=== PATIENT | female | born 1950 | race Caucasian/White ===

== ENCOUNTER → 2017-01-04 | Outpatient (CLI) | payer MEDICARE ==
[~2017-01-04] MED LIST: B12,B-12,B 12500 MC1 PO; D-1000 185 MG-11 TAB PO; Lopressor25 MG PO; POLLY-VITES1 CTB PO; TOPROL XL25 MG PO
[2017-01-04 10:46] LABS: BASO % 0.5 % (0.0-1.0); EOS # 0.1 10*3/uL (0.0-0.4); EOS % 3.2 % (1.0-4.0); HEMATOCRIT 42.5 % (37.0-47.0); HEMOGLOBIN 14.4 g/dl (12.0-16.0); LYMPH # 1.5 10*3/uL (1.3-4.4); LYMPH % 33.6 % (27.0-41.0); MEAN CELL VOLUME 90.2 fl (81.0-99.0); MEAN CORPUSCULAR HGB 30.6 pg (27.0-31.0); MEAN CORPUSCULAR HGB CONC 33.9 g/dl (33.0-37.0); MEAN PLATELET VOLUME 8.4 fl (9.6-12.3); MONO # 0.5 10*3/uL (0.1-1.0); MONO % 10.3 % (3.0-9.0); NEUT # 2.3 10*3/uL (2.3-7.9); NEUT % 52.2 % (47.0-73.0); PLATELET COUNT AUTOMATED 179 10*3/uL (130-400); RED BLOOD COUNT 4.71 10*6/uL (4.10-5.10); RED CELL DISTRI WIDTH 13.1 % (0-14.5); WHITE BLOOD COUNT 4.4 10*3/uL (4.8-10.8)
[2017-01-04 11:19] LABS: ALBUMIN 3.5 gm/dl (3.1-4.5); ALKALINE PHOSPHATASE 71 U/L (45-117); BILIRUBIN, TOTAL 0.6 mg/dl (0.2-1.0); BUN 13 mg/dl (7-24); CARBON DIOXIDE 30 mmol/L (21-32); CHLORIDE 104 mmol/L (98-107); CHOLESTEROL 204 mg/dL (<200); EST GLOM FILT AFRICAN AMERICAN > 60 ml/min; GLUCOSE 94 mg/dL (65-99); HDL CHOLESTEROL 71 mg/dl (40-60); LDL CHOLESTEROL 112 mg/dL (9-159); SGOT/AST 23 IU/L (3-35); SGPT/ALT 22 U/L (12-78); SODIUM 139 mmol/L (136-145); TOTAL PROTEIN 7.4 gm/dL (6.4-8.2); TRIGLYCERIDES 104 mg/dl (<150); VLDL CHOLESTEROL 21 mg/dL (6-40)
== END | disposition home or self-care (01) ==
LOC: LAB 09:33 → MAMMO 10:00
PROVIDERS: Family Medicine
DX: Z12.31 Encounter for screening mammogram for malignant neoplasm of breast (principal); I60.9 Nontraumatic subarachnoid hemorrhage, unspecified; E66.9 Obesity, unspecified; Z78.9 Other specified health status

== ENCOUNTER 2017-05-18 13:41 | Emergency (ER) | payer MEDICARE ==
[~2017-05-18] VITALS: Ht 160 cm; Wt 78.5 kg
[2017-05-18 14:31] LABS: BASO % 0.8 % (0.0-1.0); EOS # 0.1 10*3/uL (0.0-0.4); EOS % 2.8 % (1.0-4.0); HEMATOCRIT 38.5 % (37.0-47.0); HEMOGLOBIN 12.9 g/dl (12.0-16.0); LYMPH # 1.6 10*3/uL (1.3-4.4); LYMPH % 31.1 % (27.0-41.0); MEAN CELL VOLUME 89.5 fl (81.0-99.0); MEAN CORPUSCULAR HGB CONC 33.5 g/dl (33.0-37.0); MEAN PLATELET VOLUME 8.6 fl (9.6-12.3); MONO # 0.5 10*3/uL (0.1-1.0); NEUT # 2.7 10*3/uL (2.3-7.9); NEUT % 54.9 % (47.0-73.0); PLATELET COUNT AUTOMATED 170 10*3/uL (130-400); RED CELL DISTRI WIDTH 13.4 % (0-14.5)
[2017-05-18 14:42] LABS: ACT PARTIAL THROMBO TIME 24.8 SECONDS (20.8-31.5); INTERNATIONAL NORM RATIO 0.9 (2.0-3.5)
[2017-05-18 14:48] LABS: ALBUMIN 3.5 gm/dl (3.1-4.5); ALKALINE PHOSPHATASE 71 U/L (45-117); BUN 14 mg/dl (7-24); CHLORIDE 105 mmol/L (98-107); CREATININE 0.61 mg/dL (0.55-1.02); POTASSIUM 4.3 mmol/L (3.5-5.1); SGOT/AST 21 IU/L (3-35); SGPT/ALT 19 U/L (12-78); SODIUM 140 mmol/L (136-145); TOTAL PROTEIN 7.2 gm/dL (6.4-8.2)
== END 2017-05-18 16:14 | disposition home or self-care (01) ==
LOC: ED 13:41
PROVIDERS: Nurse Practitioner
DX: H57.8 Other specified disorders of eye and adnexa (principal); Z79.899 Other long term (current) drug therapy; Z87.891 Personal history of nicotine dependence

== ENCOUNTER 2017-11-12 12:29 | Emergency (ER) | payer OTHER ==
[~2017-11-12] VITALS: Ht 165.1 cm; Wt 68.0 kg
[2017-11-12] MEDS ORDERED: SEPTDS PO (12:41)
== END 2017-11-12 12:54 | disposition home or self-care (01) ==
LOC: ED 12:29
DX: K21.9 Gastro-esophageal reflux disease without esophagitis (principal); L03.115 Cellulitis of right lower limb; I50.9 Heart failure, unspecified; Z86.73 Personal history of transient ischemic attack (TIA), and cerebral infarction without residual deficits; Z87.891 Personal history of nicotine dependence; Z79.899 Other long term (current) drug therapy

== ENCOUNTER → 2017-12-22 | Outpatient (CLI) | payer OTHER ==
[~2017-12-22] MED LIST changes: +SEPTDS PO
[2017-12-22 12:07] LABS: ALKALINE PHOSPHATASE 73 U/L (45-117); BUN 9 mg/dl (7-24); CHLORIDE 108 mmol/L (98-107); CHOLESTEROL 211 mg/dL (<200); CREATININE 0.61 mg/dL (0.55-1.02); HDL CHOLESTEROL 45 mg/dl (40-60); LDL CHOLESTEROL 148 mg/dL (9-159); POTASSIUM 3.9 mmol/L (3.5-5.1); SGOT/AST 17 IU/L (3-35); SGPT/ALT 14 U/L (12-78); SODIUM 143 mmol/L (136-145); TOTAL PROTEIN 6.9 gm/dL (6.4-8.2); TRIGLYCERIDES 91 mg/dl (<150); VLDL CHOLESTEROL 18 mg/dL (6-40)
[2017-12-22 12:13] LABS: HEMATOCRIT 37.4 % (37.0-47.0); HEMOGLOBIN 11.6 g/dl (12.0-16.0); MEAN CELL VOLUME 84.2 fl (81.0-99.0); MEAN CORPUSCULAR HGB 26.1 pg (27.0-31.0); MEAN PLATELET VOLUME 8.8 fl (9.6-12.3); RED BLOOD COUNT 4.44 10*6/uL (4.10-5.10); RED CELL DISTRI WIDTH 15.2 % (0-14.5); WHITE BLOOD COUNT 6.7 10*3/uL (4.8-10.8)
== END | disposition home or self-care (01) ==
LOC: LAB 11:17
PROVIDERS: Registered Nurse Flight
DX: Z00.01 Encounter for general adult medical examination with abnormal findings (principal); E78.00 Pure hypercholesterolemia, unspecified; E55.9 Vitamin D deficiency, unspecified

== ENCOUNTER → 2018-02-28 | Outpatient (CLI) | payer OTHER | END | disposition home or self-care (01) | LOC: MAMMO 07:38 | DX: Z12.31 Encounter for screening mammogram for malignant neoplasm of breast (principal); R92.1 Mammographic calcification found on diagnostic imaging of breast ==

== ENCOUNTER 2018-07-28 14:13 | Emergency (ER) | payer OTHER ==
[~2018-07-28] VITALS: Ht 162.5 cm; Wt 78.9 kg
[2018-07-28 15:53] LABS: BASO % 0.5 % (0.0-1.0); EOS # 0.1 10*3/uL (0.0-0.4); EOS % 1.6 % (1.0-4.0); HEMATOCRIT 36.1 % (37.0-47.0); LYMPH # 1.4 10*3/uL (1.3-4.4); MEAN CELL VOLUME 81.7 fl (81.0-99.0); MEAN CORPUSCULAR HGB 24.9 pg (27.0-31.0); MEAN CORPUSCULAR HGB CONC 30.5 g/dl (33.0-37.0); MEAN PLATELET VOLUME 8.6 fl (9.6-12.3); MONO # 0.7 10*3/uL (0.1-1.0); MONO % 9.3 % (3.0-9.0); NEUT # 5.7 10*3/uL (2.3-7.9); NEUT % 71.3 % (47.0-73.0); PLATELET COUNT AUTOMATED 276 10*3/uL (130-400); RED BLOOD COUNT 4.42 10*6/uL (4.10-5.10); RED CELL DISTRI WIDTH 15.9 % (0-14.5)
[2018-07-28 16:02] LABS: ACT PARTIAL THROMBO TIME 25.2 SECONDS (20.8-31.5); INTERNATIONAL NORM RATIO 0.9 (2.0-3.5)
[2018-07-28 16:19] LABS: ALBUMIN 2.8 gm/dl (3.1-4.5); ALKALINE PHOSPHATASE 83 U/L (45-117); BUN 11 mg/dl (7-24); CHLORIDE 104 mmol/L (98-107); CREATININE 0.65 mg/dL (0.55-1.02); SGOT/AST 14 IU/L (3-35); SGPT/ALT 13 U/L (12-78); SODIUM 138 mmol/L (136-145); TOTAL PROTEIN 7.2 gm/dL (6.4-8.2)
[2018-07-28] MEDS ORDERED: INDOMETHACIN ER75 M1 PO (17:38)
== END 2018-07-28 17:42 | disposition home or self-care (01) ==
LOC: ED 14:13
PROVIDERS: Physician Assistant
DX: M10.9 Gout, unspecified (principal); M25.462 Effusion, left knee; Z87.891 Personal history of nicotine dependence; Z79.899 Other long term (current) drug therapy

== ENCOUNTER 2020-01-05 19:19 | Inpatient (IN) | payer OTHER ==
[~2020-01-05] VITALS: Ht 157.4 cm; Wt 80.5 kg
[~2020-01-05 19:19] MED LIST changes: +INDOMETHACIN ER75 M1 PO
[2020-01-05 19:50] VITALS: BP 116/63
[2020-01-05 21:41] LABS: BASO % 0.4 % (0.0-1.0); EOS % 0.3 % (1.0-4.0); HEMATOCRIT 28.8 % (37.0-47.0); LYMPH # 1.9 10*3/uL (1.3-4.4); LYMPH % 16.4 % (27.0-41.0); MEAN CELL VOLUME 70.9 fl (81.0-99.0); MEAN CORPUSCULAR HGB 21.4 pg (27.0-31.0); MEAN CORPUSCULAR HGB CONC 30.2 g/dl (33.0-37.0); MEAN PLATELET VOLUME 8.1 fl (9.6-12.3); MONO # 0.7 10*3/uL (0.1-1.0); MONO % 6.5 % (3.0-9.0); NEUT # 8.7 10*3/uL (2.3-7.9); PLATELET COUNT AUTOMATED 259 10*3/uL (130-400); RED BLOOD COUNT 4.06 10*6/uL (4.10-5.10); RED CELL DISTRI WIDTH 19.9 % (0-14.5); WHITE BLOOD COUNT 11.4 10*3/uL (4.8-10.8)
[2020-01-05 21:52] LABS: ACT PARTIAL THROMBO TIME 29.3 SECONDS (20.0-32.1); INTERNATIONAL NORM RATIO 1.2 (2.0-3.5)
[2020-01-05 21:57] LABS: ALBUMIN 1.5 gm/dl (3.1-4.5); ALKALINE PHOSPHATASE 153 U/L (45-117); BUN 14 mg/dl (7-24); CHLORIDE 103 mmol/L (98-107); LIPASE 62 U/L (73-393); POTASSIUM 3.1 mmol/L (3.5-5.1); SGOT/AST 28 IU/L (3-35); SGPT/ALT 12 U/L (12-78); SODIUM 135 mmol/L (136-145); TOTAL PROTEIN 5.9 gm/dL (6.4-8.2)
--- NOTE | 2020-01-05 22:12 | NUR ---
CALL LIGHT IN REACH. EDUCATED PT ON POTASSIUM INFUSION. . INSTRUCTED PT TO USE CALL LIGHT IF SHE HAS ANY DISCOMFORT AT THE IV SITE.
--- NOTE | 2020-01-05 22:38 | NUR ---
PT DENIES DISCOMFORT AT IV SITE. HAS DRANKL 1 1/2 BOTTLES OF CONTRAST AT THIS TIME.
--- NOTE | 2020-01-05 23:00 | NUR ---
PT FINISHED DRINKING CONTRAST. CT NOTIFIED. CT WILL COME GET PT AT 2325. PT UPDATED. RESTING QUIETLY. BELCHING AT TIMES. NO FURTHER COMPLAINTS.
--- NOTE | 2020-01-05 23:17 | NUR ---
Yasmin of care from Stephanie swain.
--- NOTE | 2020-01-05 23:24 | NUR ---
In to see pt at this time.Pt is alert and orientated x 3.Pt denines open wounds at this time.Pt has distended abdomen and bsx4.Pt also has clear lung sounds a this time.Pt has 20 gauge in rac at this time infusing fluids and potassium.Pt drinking contrast and states she does not need anything at this time.
[2020-01-05 23:26] VITALS: BP 122/49
--- NOTE | 2020-01-05 23:56 | NUR ---
Pt up to the bathroom with assit of one.
[2020-01-06] VITALS (8 sets, daily range): BP systolic 97–126; BP diastolic 46–60
--- NOTE | 2020-01-06 | NUR ---
Pt had large semi formed and liquid stool and also voided at this time.
--- NOTE | 2020-01-06 00:50 | NUR ---
Pt currently sleeping at this time.
[2020-01-06] MEDS ORDERED: SIMVASTATIN20 MG PO (02:02)
--- NOTE | 2020-01-06 02:45 | NUR ---
Pt taken to floor with all belongings including levaquin and flagyl.
--- NOTE | 2020-01-06 02:50 | NUR ---
A 69, admitted to , under the services of HUNTER Knight DO with a diagnosis of CONSTIPATION. Chief complaint is CONSTIPATION. Patient arrived via bed from ER. Monitor applied. Initial assessment completed. Vital signs taken and recorded. HUNTER KNIGHT DO notified of admission to the unit. Orders received. See assessment for past medical history, medications and allergies. Patient and/or family oriented to unit. [facility] visitation policy reviewed. Clothing/patient valuable form completed. LEONARDO PEREZ
--- NOTE | 2020-01-06 03:36 | NUR ---
DR. DONG NOTIFIED OF UP TO DATE HOME MEDICATIONS
--- NOTE | 2020-01-06 04:00 | NUR ---
DR. LETIITA ORONA PO MORNING MEDICATIONS
--- NOTE | 2020-01-06 05:30 | NUR ---
PT SLEEPING AT THIS TIME.
--- NOTE | 2020-01-06 06:15 | NUR ---
DR. OLMEDO NOTIFIED OF CONSULT
[2020-01-06 06:29] LABS: BASO % 0.4 % (0.0-1.0); EOS # 0.1 10*3/uL (0.0-0.4); EOS % 0.8 % (1.0-4.0); HEMATOCRIT 28.1 % (37.0-47.0); LYMPH # 1.8 10*3/uL (1.3-4.4); LYMPH % 15.7 % (27.0-41.0); MEAN CELL VOLUME 71.7 fl (81.0-99.0); MEAN CORPUSCULAR HGB 21.7 pg (27.0-31.0); MEAN CORPUSCULAR HGB CONC 30.2 g/dl (33.0-37.0); MEAN PLATELET VOLUME 8.3 fl (9.6-12.3); MONO # 0.8 10*3/uL (0.1-1.0); MONO % 7.2 % (3.0-9.0); NEUT # 8.4 10*3/uL (2.3-7.9); NEUT % 75.5 % (47.0-73.0); PLATELET COUNT AUTOMATED 256 10*3/uL (130-400); RED BLOOD COUNT 3.92 10*6/uL (4.10-5.10); WHITE BLOOD COUNT 11.1 10*3/uL (4.8-10.8)
[2020-01-06 06:52] LABS: ALBUMIN 1.2 gm/dl (3.1-4.5); ALKALINE PHOSPHATASE 131 U/L (45-117); BUN 11 mg/dl (7-24); CHLORIDE 105 mmol/L (98-107); CREATININE 0.44 mg/dL (0.55-1.02); POTASSIUM 3.3 mmol/L (3.5-5.1); SGOT/AST 21 IU/L (3-35); SGPT/ALT 6 U/L (12-78); SODIUM 135 mmol/L (136-145)
--- NOTE | 2020-01-06 10:25 | NUR ---
PRN DULCOLAX AND MILK OF MAGNESIA GIVEN FOR PATIENTS CONSTIPATION PER REQUEST FROM DR. ALANIS. WILL CONTINUE TO MONITOR.
--- NOTE | 2020-01-06 19:10 | NUR ---
REPORT RECEIVED. PT WATCHING TV. CALL LIGHT IN REACH
--- NOTE | 2020-01-06 22:00 | NUR ---
PT RESTING IN BED WITH EYES CLOSED. AROUSES EASILY UPON ENTERING ROOM. NO COMPLAINTS, CALL LIGHT IN REACH
[2020-01-07] VITALS: BP 119/68
--- NOTE | 2020-01-07 00:04 | NUR ---
PT ASLEEP AT THIS TIME.
--- NOTE | 2020-01-07 02:00 | NUR ---
PT SLEEPING AT THIS TIME
--- NOTE | 2020-01-07 04:00 | NUR ---
PT LYING IN BED WITH EYES CLOSED. NO S/S OF DISTRESS. CALL LIGHT IN REACH
[2020-01-07 06:05] LABS: BASO % 0.3 % (0.0-1.0); EOS # 0.1 10*3/uL (0.0-0.4); EOS % 1.1 % (1.0-4.0); HEMATOCRIT 26.1 % (37.0-47.0); LYMPH # 1.5 10*3/uL (1.3-4.4); LYMPH % 15.6 % (27.0-41.0); MEAN CELL VOLUME 71.7 fl (81.0-99.0); MEAN CORPUSCULAR HGB 21.4 pg (27.0-31.0); MEAN CORPUSCULAR HGB CONC 29.9 g/dl (33.0-37.0); MEAN PLATELET VOLUME 8.3 fl (9.6-12.3); MONO # 0.7 10*3/uL (0.1-1.0); MONO % 7.5 % (3.0-9.0); NEUT % 75.1 % (47.0-73.0); PLATELET COUNT AUTOMATED 249 10*3/uL (130-400); RED BLOOD COUNT 3.64 10*6/uL (4.10-5.10); RED CELL DISTRI WIDTH 19.8 % (0-14.5); WHITE BLOOD COUNT 9.3 10*3/uL (4.8-10.8)
[2020-01-07 06:26] LABS: ALBUMIN 1.1 gm/dl (3.1-4.5); ALKALINE PHOSPHATASE 115 U/L (45-117); BUN 8 mg/dl (7-24); CHLORIDE 108 mmol/L (98-107); CREATININE 0.39 mg/dL (0.55-1.02); SGOT/AST 17 IU/L (3-35); SGPT/ALT 8 U/L (12-78); SODIUM 137 mmol/L (136-145); TOTAL PROTEIN 4.6 gm/dL (6.4-8.2)
--- NOTE | 2020-01-07 06:28 | NUR ---
PT SLEEPING AT THIS TIME. CALL LIGHT IN REACH
[2020-01-07 06:42] LABS: POTASSIUM 4.5 mmol/L (3.5-5.1)
[2020-01-07 08:00] VITALS: BP 121/66
[2020-01-07 12:00] VITALS: BP 121/68
[2020-01-07 16:00] VITALS: BP 133/63
[2020-01-07 20:00] VITALS: BP 125/68
--- NOTE | 2020-01-07 20:00 | NUR ---
PATIENT RESTING IN BED C/O NAUSEA. GOLYTLE FINISHED. STATES IT UPSET HER STOMACH BUT SHE DID START MOVING HER BOWELS. BED IN LOWEST POSITION, CALL LIGHT IN REACH
--- NOTE | 2020-01-07 20:49 | NUR ---
MEDICATED WITH PRN ZOFRAN FOR C/O NAUSEA. WILL MONITOR
--- NOTE | 2020-01-07 21:49 | NUR ---
MEDICATION EFFECTIVE PER PATIENT
[2020-01-08] VITALS (8 sets, daily range): BP systolic 93–127; BP diastolic 39–72
[2020-01-08 05:52] LABS: BUN 7 mg/dl (7-24); CHLORIDE 108 mmol/L (98-107); CREATININE 0.45 mg/dL (0.55-1.02); POTASSIUM 3.6 mmol/L (3.5-5.1); SODIUM 137 mmol/L (136-145)
[2020-01-08 06:12] LABS: BASO % 0.2 % (0.0-1.0); EOS % 0.2 % (1.0-4.0); HEMATOCRIT 28.3 % (37.0-47.0); LYMPH # 1.5 10*3/uL (1.3-4.4); LYMPH % 14.6 % (27.0-41.0); MEAN CELL VOLUME 73.5 fl (81.0-99.0); MEAN CORPUSCULAR HGB 21.8 pg (27.0-31.0); MEAN CORPUSCULAR HGB CONC 29.7 g/dl (33.0-37.0); MEAN PLATELET VOLUME 8.7 fl (9.6-12.3); MONO # 0.5 10*3/uL (0.1-1.0); MONO % 4.7 % (3.0-9.0); NEUT % 79.9 % (47.0-73.0); PLATELET COUNT AUTOMATED 261 10*3/uL (130-400); RED BLOOD COUNT 3.85 10*6/uL (4.10-5.10); RED CELL DISTRI WIDTH 20.4 % (0-14.5)
--- NOTE | 2020-01-08 08:00 | NUR ---
IN TO ROOM. PATIENT AWAKE, ALERT AND ORIENTED. NO STATED COMPLAINTS AT THIS TIME, DENIES ANY PAIN. RESPIRATIONS ARE EASY AND REGULAR ON ROOM AIR. PT IS ABLE TO REPOSITION SELF AND IS ENCOURAGE TO DO SO. BED IN LOWEST LOCKED POSITION, CALL LIGHT WITHIN REACH. WILL CONTINUE TO MONITOR.
--- NOTE | 2020-01-08 08:40 | NUR ---
PATIENT OFF OF FLOOR TO GO TO SURGERY.
--- NOTE | 2020-01-08 09:00 | NUR ---
case management attempted to visit with patient, patient was out of room at this time for testing, case management will see later today
--- NOTE | 2020-01-08 19:58 | NUR ---
ASSUMED CARE OF PATIENT. PATIENT IS AAOX3 RESTING IN BED WITH EASY AND REGULAR RESPERS ON ROOM AIR. ASSESSMENT IS COMPLETE WITH NO C/O OR S/S OF DISTRESS NOTED AT THIS TIME. BED IS LOW, LOCKED, AND CALL LIGHT IS WIHTIN REACH. WILL CONTINUE TO MONITOR, SEE INTERVENTIONS.
--- NOTE | 2020-01-08 19:58 | NUR ---
ASSUMED CARE OF PATIENT. PATIENT IS AAOX3 RESTING IN BED WITH EASY AND REGULAR RESPERS ON ROOM AIR. ASSESSMENT IS COMPLETE WITH NO C/O OR S/S OF DISTRESS NOTED AT THIS TIME. BED IS LOW, LOCKED, AND CALL LIGHT IS WITHIN REACH. WILL CONTINIUE TO MONITOR, SEE SHIFT ASSESSMENT.
[2020-01-09] VITALS: BP 126/68
[2020-01-09 05:27] LABS: BUN 7 mg/dl (7-24); CHLORIDE 112 mmol/L (98-107); CREATININE 0.46 mg/dL (0.55-1.02); POTASSIUM 2.9 mmol/L (3.5-5.1); SODIUM 140 mmol/L (136-145)
--- NOTE | 2020-01-09 05:30 | NUR ---
DR. FOX AWARE OF CALCIUM OF 6.9.
[2020-01-09 05:58] LABS: BASO % 0.3 % (0.0-1.0); EOS # 0.1 10*3/uL (0.0-0.4); HEMATOCRIT 28.6 % (37.0-47.0); LYMPH # 1.2 10*3/uL (1.3-4.4); LYMPH % 12.2 % (27.0-41.0); MEAN CELL VOLUME 71.7 fl (81.0-99.0); MEAN CORPUSCULAR HGB 22.1 pg (27.0-31.0); MEAN CORPUSCULAR HGB CONC 30.8 g/dl (33.0-37.0); MEAN PLATELET VOLUME 8.4 fl (9.6-12.3); MONO # 0.7 10*3/uL (0.1-1.0); MONO % 6.6 % (3.0-9.0); NEUT % 79.5 % (47.0-73.0); PLATELET COUNT AUTOMATED 284 10*3/uL (130-400); RED BLOOD COUNT 3.99 10*6/uL (4.10-5.10); RED CELL DISTRI WIDTH 20.6 % (0-14.5); WHITE BLOOD COUNT 10.1 10*3/uL (4.8-10.8)
--- NOTE | 2020-01-09 07:00 | NUR ---
CHART CHECK COMPLETE.
--- NOTE | 2020-01-09 07:41 | NUR ---
PATIENT DAUGHTER, CLAYTON COTTON, CALLED IN REQUESTING DOCTOR OR SURGEON GET IN CONTACT WITH HER REGARDING SURGERY. CALL PLACED TO DR. OLMEDO AND HE SAID HE WOULD CONTACT THE FAMILY TOMORROW WITH PERMISSION FROM PATIENT. RELEASE OF RECORDS ON PATIENT CHART.
[2020-01-09 08:00] VITALS: BP 117/69
[2020-01-09 12:00] VITALS: BP 108/58
--- NOTE | 2020-01-09 12:33 | NUR ---
case management visits with patient, discussed with her a discharge plan and educated her on the services provided by [facility], patient was tearful and stated she did not want to discuss any of this at this time, reassurance given to patient and will see at a later time
[2020-01-09 16:00] VITALS: BP 121/60
[2020-01-09 20:00] VITALS: BP 113/59
--- NOTE | 2020-01-09 21:41 | NUR ---
ASSUMED CARE OF PATIENT. PATIENT IS AAOX3 RESTING IN BED WITH EASY AND REGULAR RESPERS ON ROOM AIR. ASSESSMENT IS COMPLETE WITH NO S/S OF DISTRESS NOTED AT THIS TIME. BED IS LOW, LOCKED, AND CALL LIGHT IS WITHIN REACH. WILL CONTNIUE TO MONITOR, SEE INTERVENTIONS.
--- NOTE | 2020-01-09 22:40 | NUR ---
PRN RESTORIL GIVEN AT THIS TIME FOR C/O INSOMNIA. BED BATH OFFERED AND PATIENT REFUSED.
--- NOTE | 2020-01-09 23:40 | NUR ---
PRN RESTORIL EFFECTIVE. CALL LIGHT IS WITHIN REACH.
[2020-01-10] VITALS (12 sets, daily range): BP systolic 75–162; BP diastolic 40–80
[2020-01-10 07:09] LABS: BUN 6 mg/dl (7-24); CHLORIDE 112 mmol/L (98-107); CREATININE 0.48 mg/dL (0.55-1.02); POTASSIUM 3.5 mmol/L (3.5-5.1); SODIUM 137 mmol/L (136-145)
[2020-01-10 15:24] LABS: ACT PARTIAL THROMBO TIME 30.4 SECONDS (20.0-32.1); INTERNATIONAL NORM RATIO 1.4 (2.0-3.5)
--- NOTE | 2020-01-10 18:10 | NUR ---
PT RESPIRATIONS DECREASED. PULSE OX DECREASING. NURSE ANESTHESIST CALLED STAT. PT HAS A PULSE BUT RESPIRATIONS STOPPED. PT BEING AMBU BAGGED AND RAPID RESPONSE CALLED. PT IS HYPOTENSIVE ALSO. IV FLUIDS INCREASED WIDE OPEN. WILL MONITOR. HEART RATE REMAINS IN THE 100S. SKIN COOL & PALE.
--- NOTE | 2020-01-10 18:20 | NUR ---
RAPID RESPONSE TEAM HERE. WHILE ATTEMPTING TO INTUBATE PT, PT CAME TO AND STATRTED TO BREATH ON HER OWN AND AROUSED. AIRWAY MAINTAINED ON HER OWN WITH FACE MASK APPLIED. PT WAS GIVEN NEOSTIGMINE 3MG IV, 0.2 ROBINOL IV AND 8 MG DECADRON IV AND ZOFRAN 4MG IV PER ANESTHESIA. NURSE AT BEDISDE THIS WHOLE TIME. PULSE OX MAINTAINING IN 90S. PTS COLOR PINKING UP. WILL MONITOR.
--- NOTE | 2020-01-10 18:40 | NUR ---
PT MORE AWAKE AND ALERT. PT VERY VERBAL AT THIS TIME. SKIN W/D TO TOUCH. COLOR PINK. PULSE OX 98% ON A FACE MASK @ 10LPM. HEART RATE NOW IN THE 100S.PT STILL REMAINS HYPOTENSIVE WITH BP 88/47. DRESSING DRY & INTACT TO ABDOMEN. PT HAD A ARTERIAL LINE INSERTED DURING SURGERY. WILL MONITOR.
--- NOTE | 2020-01-10 19:40 | NUR ---
REPORT RECEIVED FROM SELIN IN OR. ANESTHESIA AND RESIDENT THERE NOW ATTEMPTING MLC INSERTION.
--- NOTE | 2020-01-10 20:21 | NUR ---
1999 PT RECEIVED FROM OR VIA BED. DR. FOX HERE WITH PT. 2015 FENTANYL 25MCG IV GIVEN FOR PAIN ORDERED. WILL MONITOR. [address] FOX AND BLADE YING NURSE NURSING AIDE HERE TO VIEW. IV FLUIDS INFUSING LW. RIJ MLC INTACT. RR ART LINE INTACT. ZEROED AND CALIBRATED WITH GOOD WAVEFORM AND DYNAMIC RESPONSE. NPO. PULSE OX 100% ON 3L 02 VAI NC. VASQUEZ PATENT AND DRAINING CLEAR YELLOW URINE. MIDLINE ABD DRSG D/I INTACT WITH NO DRNG NOTED. NO PERSITALSIS NOTED AT PRESENT TIME. PT OPENS EYES TO NAME. FOLLOWS COMMANDS.
--- NOTE | 2020-01-10 20:45 | NUR ---
Pt decreased from 4L NC to 2L NC - SpO2 100%
--- NOTE | 2020-01-10 20:50 | NUR ---
Pt is also too sleepy to start the incentive spirometer at the moment. Will check back later.
[2020-01-10 20:51] LABS: ABG BASE EXCESS -7.3 mmol/L (-2.0-2.0); ARTERIAL BLOOD GAS PH 7.292 (7.35-7.45)
--- NOTE | 2020-01-10 21:16 | NUR ---
2116 EARLIER FENTANYL EFFECTIVE FOR PAIN RELIEF.
--- NOTE | 2020-01-10 21:20 | NUR ---
BP WAS IN THE 80'S SYSTOLIC WITH A MAP <60. BP IS NOW 93/61 WITH A MAP OF 65. DR. FOX CALLED AND UPDASTED ON PT CONDITION. OK TO USE MLC NOW. DR. OLMEDO CALLED AND UPDATED ON PT CONDITION. ORDERS RECEIVED. INSTRUCTED TO NOT START PT ON LEVOPHED UNLESS ABSOLUTELY NECESSARY.
[2020-01-10 21:39] LABS: HEMATOCRIT 31.2 % (37.0-47.0)
--- NOTE | 2020-01-10 22:23 | NUR ---
RESTING IN BED WITH EYES CLOSED. APPEARS TO BE SLEEPING. HOB ELEVATED. SIDE RAILS UP X'S 2. CALL LIGHT IN REACH. ORAL CARE DONE. REMAINS NPO. BP IS 101/55 WITH A MAP OF 70.
[2020-01-11] VITALS (8 sets, daily range): BP systolic 86–105; BP diastolic 52–67
--- NOTE | 2020-01-11 00:40 | NUR ---
PT C/O NAUSEA. NO EMESIS NOTED. REPOSTIONED ON RIGHT SIDE. ENCOURAGED TO SPLINT INCISION. MEDICATED WITH ZOFRAN IV FOR NAUSEA AND FENTANYL 25MCG FOR C/O'S POST OP ABD PAIN. WILL MONITOR. ORAL CARE DONE.
--- NOTE | 2020-01-11 01:40 | NUR ---
EARLIER MEDS EFFECTIVE. RESTING IN BED WITH EYES CLOSED. APPEARS TO BE SLEEPING.
--- NOTE | 2020-01-11 06:13 | NUR ---
REMAINS SLEEPING WIHTOUT DISTRESS. FREQUENT ORAL CARE DONE. REMAINS NPO. ART LINE INTACT R BRACHIAL SITE. RIJ MLC INTACT. IV FLUIDS CONT. PULSE OX 99% ON 2L 02 VIA NC. NO C/O'S VOICED. CONDITION GUARDED.
[2020-01-11 06:27] LABS: BASO % 0.1 % (0.0-1.0); LYMPH # 1.2 10*3/uL (1.3-4.4); LYMPH % 7.6 % (27.0-41.0); MEAN CELL VOLUME 74.2 fl (81.0-99.0); MEAN CORPUSCULAR HGB 22.2 pg (27.0-31.0); MEAN PLATELET VOLUME 8.6 fl (9.6-12.3); MONO # 0.4 10*3/uL (0.1-1.0); MONO % 2.3 % (3.0-9.0); NEUT # 13.9 10*3/uL (2.3-7.9); NEUT % 89.3 % (47.0-73.0); PLATELET COUNT AUTOMATED 253 10*3/uL (130-400); RED BLOOD COUNT 4.18 10*6/uL (4.10-5.10); RED CELL DISTRI WIDTH 21.5 % (0-14.5); WHITE BLOOD COUNT 15.5 10*3/uL (4.8-10.8)
[2020-01-11 06:30] LABS: BUN 7 mg/dl (7-24); CHLORIDE 111 mmol/L (98-107); CREATININE 0.41 mg/dL (0.55-1.02); POTASSIUM 3.8 mmol/L (3.5-5.1); SODIUM 139 mmol/L (136-145)
--- NOTE | 2020-01-11 08:36 | NUR ---
Awakened for VS and assessment. TCDB encouraged. RT here and instruction for use of I/S given. Pt. minimally participated. Repositioned. MLC to RIJ secure. w/ all l conor patent. A-line to RB secure. wave slightly dampened. Zero abner w/ good response. Abdomen tender w/ secure dressing d/i. Medcicated for nausea.
--- NOTE | 2020-01-11 08:45 | NUR ---
[facility]
--- NOTE | 2020-01-11 10:27 | NUR ---
[facility] w/ ofimier for pain then assisted to dangle at bedside. Pt. experienced moderate pain w/ movement, assisted w/ I/S and then TCDB. Returned to bed fowlers position.
--- NOTE | 2020-01-11 10:50 | NUR ---
PHYSICAL THERAPY Chart reviewed attempted to see pt in ICCU for evaluation. Per nurse pt just dangled an hour ago resting currently looking to discontinue Arterial line. Nursing would prefer to have pt seen in the afternoon for OOB activity. Spoke with pt subjective information taken and room set for activity will follow in the PM Shanna Preciado PT
--- NOTE | 2020-01-11 11:10 | NUR ---
OT NOTE Occupational therapy order received and chart reviewed. Per discussion with nursing in the ICCU, patient was seated at the EOB this AM and looking to remove her arterial line. Nursing would prefer OT return in early afternoon for OOB activity as able to tolerate. Patient's subjective information and PLOF was obtained. Will check back later today for completion of an OT evaluation. Thank you. Kate Harmon, OTR/L
--- NOTE | 2020-01-11 11:48 | NUR ---
Discussed A-line discontinuation w/ Dr. Alexander. oK to dc if MAP is stable. MAP at times continues to dip at low 60's. current BP 77/55 (61). A-Line remains at this time.
--- NOTE | 2020-01-11 13:30 | NUR ---
Occupational Therapy evaluation completed on ICCU with full evaluation to follow. Recommend occupational therapy per plan of care and SNF upon discharge. Thank you for this referral. Kate Harmon OTR/L
--- NOTE | 2020-01-11 13:30 | NUR ---
PHYSICAL THERAPY Physical Therapy evaluation completed ICCU with full evaluation to follow. Recommend physical therapy per plan of care and SNF upon discharge. Thank you for this referral. Shanna Preciado PT
--- NOTE | 2020-01-11 13:35 | NUR ---
A-line dc'd pressure to site x3 min. Tissue edematous , Nicked skin on removal of suture. Dressing applied also skin tear on removal of tape.
--- NOTE | 2020-01-11 14:43 | NUR ---
1400 PT/OT in assisted pt. up to chair. tachycardic w/ activity. Dr. Fitzgerald in to evaulate. Orders recieved. Medicated for pain and IVF increased to 125/h.
--- NOTE | 2020-01-11 16:17 | NUR ---
1500 PT/OT here to assist pt. to bed. Pt. requested to remain up in chair. Stating she is more comfortable there. TCDB encouraged. Assisted with I/S. Spouse called in and update was given. Medication given for pain was effective.
[2020-01-12] VITALS (7 sets, daily range): BP systolic 91–107; BP diastolic 50–64
--- NOTE | 2020-01-12 05:21 | NUR ---
PATIENT HAS DENIED ANY PAIN ALL NIGHT. BUT WHEN TOUCHED TO REPOSTION HER IN ANYWAY EVEN IF ITS TO MOVE HER ARMS SHE YELLS OUCH. PATIENT HAS BEEN GIVEN TYLENOL THROUGH OUT THE NIGHT FOR PAIN.
--- NOTE | 2020-01-12 05:34 | NUR ---
CALLED DOCTOR RUDDY DUE TO PATINET ONLY HAVING OUT 100 ML OF URINE IN VASQUEZ FOR 11PM-TILL NOW. PATIENT EXTREMITIES ARE VERY EDEMATOUS. IV FLUIDS DECREASED TO 60 MLS/HR PER DOCTORS ORDERS.
[2020-01-12 06:54] LABS: BASO % 0.1 % (0.0-1.0); HEMATOCRIT 26.6 % (37.0-47.0); LYMPH # 1.8 10*3/uL (1.3-4.4); LYMPH % 14.2 % (27.0-41.0); MEAN CELL VOLUME 71.3 fl (81.0-99.0); MEAN CORPUSCULAR HGB 21.7 pg (27.0-31.0); MEAN CORPUSCULAR HGB CONC 30.5 g/dl (33.0-37.0); MEAN PLATELET VOLUME 8.5 fl (9.6-12.3); MONO # 0.8 10*3/uL (0.1-1.0); NEUT # 9.9 10*3/uL (2.3-7.9); NEUT % 79.2 % (47.0-73.0); PLATELET COUNT AUTOMATED 237 10*3/uL (130-400); RED BLOOD COUNT 3.73 10*6/uL (4.10-5.10); RED CELL DISTRI WIDTH 21.8 % (0-14.5); WHITE BLOOD COUNT 12.5 10*3/uL (4.8-10.8)
[2020-01-12 07:11] LABS: ALKALINE PHOSPHATASE 85 U/L (45-117); BUN 8 mg/dl (7-24); CHLORIDE 109 mmol/L (98-107); CREATININE 0.82 mg/dL (0.55-1.02); SGOT/AST 20 IU/L (3-35); SGPT/ALT 10 U/L (12-78); SODIUM 137 mmol/L (136-145); TOTAL PROTEIN 4.2 gm/dL (6.4-8.2)
--- NOTE | 2020-01-12 08:12 | NUR ---
IV TYLENOL GIVEN FOR SURGICAL PAIN MANAGEMENT PRIOR TO GETTING PT OOB
--- NOTE | 2020-01-12 08:53 | NUR ---
UP TO RECLINER X 2 MAX ASSIST
--- NOTE | 2020-01-12 08:54 | NUR ---
[employer] ATTENDANT FAXED NEW REFERRAL TO THE [facility]. PATIENT WILL NEED PT/OT EVALS AND COVID. WILL AWAIT FOR ACCEPTANCE/DENAIL.
--- NOTE | 2020-01-12 09:10 | NUR ---
OT NOTE PATIENT SEEN OT THIS DATE 20 MINUTES. PATIENT SEATED IN RECLINER UPON ARRIVAL. PATIENT REPORTS 6/10 PAIN R ABDOMEN. COMPLETED ACTIIVTY TO TOLERANCE THIS DATE. PATIENT HR 111 BPM SEATED AT REST AND INCREASING TO 147 BPM WITH STANDING. PATIENT RESPIRATION WERE 25 AT REST AND INCREASE 35 WITH ACTIVITY. PATIENT COMPLETED SIT TO STAND FROM RECLINER MIN A X 2 ASSIST WITH MODERATE VERBAL CUES TECHNIQUE AND INCREASE TIME TO COMPLETE. COMPLETED STATIC STAND TOLERANCE APPROX 3 MINUTES USE FWW SUPPORT FOR INCREASE STAND STAND TOLERANCE DURING STANDING COMPONENTS ADL TASKS. PATIENT COMPLETED FUNCTIONAL AROM REACHING TO COMB HAIR MIN A USE RUE. COMPLETED SIT TO STAND SECOND TIME MOD A X 2 SECONDARY TO FATIGUE COMPLETING FUNCTIONAL AMBULATION SHORT DISTANCE CGA WITH CHAIR FOLLOW. PATIENT SEATED IN RECLINER END OF SESSION WITH CALL LIGHT IN REACH AND NO FURTHER NEEDS VERBALIZED. CONTINUE TOWARDS PLAN OF CARE. THOR GREGG
--- NOTE | 2020-01-12 09:10 | NUR ---
PHYSICAL THERAPY Patient seen this am 1:1 for therapy visit following discussion with ICCU nurse regarding patient status as patient was sitting up in bedside chair upon therapist arrival. Patient identified by name / and was joined by OT grants assistant for observation only this session. Patient reports 6/10 R side abdominal pain and records resting HR 111 bpm, RR 22 prior to completing sit to stand transfer MIN A x 2, use of wh walker standing support. Patient tolerated approx 3 minutes static stand, demonstrating "slouched" standing posture and no increase in pain c/o. Patient however did need v/c for proper hand placement during ascent / descent. Patient recorded standing HR 147 bpm, RR 35 and following seated rest break, performed sit to stand MOD A x 2 secondary to increased fatigue and ambulated 5'x 1, wh walker, MIN A, while demonstrating slow, "woddling" gait pattern, increased difficulty advancing B LE. Patient recorded HR 148 bpm, RR 36 following gait ex and returned to bedside chair. Patient remained in chair with call light and tray table under ICCU nurse Supervision. Will continue per POC as tolerated, total treatment time 17 minutes. Remy Basurto, CINNAMON GRINDER
--- NOTE | 2020-01-12 10:21 | NUR ---
REMAINS IN CHAIR MOVEMENT OF ARMS AND LEGS ENC, IS ENC, PT RELUCTANT TO MOVE, POOR APPETITE
--- NOTE | 2020-01-12 12:13 | NUR ---
PT STOOD UP FROM [facility] WITH MAX ASSIST AND MUCH ENCOURAGEMENT, AND REPOSITIONED IN CHAIR
--- NOTE | 2020-01-12 13:41 | NUR ---
BACK TO BED X 2 MAX ASSIST
--- NOTE | 2020-01-12 16:03 | NUR ---
PHYSICAL THERAPY CO-SIGN I approve of the Physical Therapy notes written above. Shanna Preciado PT
--- NOTE | 2020-01-12 16:21 | NUR ---
UP TO RECLINER X 2 ASSIST PT DID MUCH BETTER, REQUIRING ONLY MODERATE ASSIST
--- NOTE | 2020-01-12 20:11 | NUR ---
PATIENT INCOURAGED TO COUGH AND DEEP BREATHE PATIENT CURRENTLY UP IN CHAIR. INCENTIVE SPIROMETER WAS ENCOURAGED. PATIENT IS COMPLAINING OF ABD PAIN AT THIS TIME AT THE INCISION SITE FENTYNAL WAS GIVEN FOR PAIN. MID ABD INCISION DRESSING CLEAN DRY AND INTACT.
--- NOTE | 2020-01-12 22:05 | NUR ---
REPORT CALLED TO LAURIE CAM. PATIENT THEN TRANSFERED BY BED TO 5TH FLOOR PATIENT CURRENTLY STABLE. PATIENT WAS CALLED AND MADE AWARE OF BEING TRANSFERED TO ANOTHER FLOOR AND WHAT ROOM SHE WAS IN.
[2020-01-13] VITALS (32 sets, daily range): BP systolic 64–140; BP diastolic 0–88
--- NOTE | 2020-01-13 17:20 | NUR ---
PT TRANSFERED TO ICU 1 AT THIS TIME. SBP 80'S. POX 93% ON ROOM AIR. ESMER AND DRESSING INTACT TO ABD WOUND. ALBUMIN AND IVF'S INFUSING IN TO RIGHT IJ. VASQUEZ INTACT WITH ONLY SCANT AMOUNT OF URINE IN TUBING.
--- NOTE | 2020-01-13 17:21 | NUR ---
AT 1430 2 NA'S AND MYSELF WERE TRANSFERRING THE PATIENT TO CHAIR ORDERED BY DR. OLMEDO DAY 3 POST OP. PATIENT BECAME SPACED PALE AND WOULD NOT RESPOND TO COMMANDS. CALLED FOR ASSISTANCE WITH VITALS AND A RAPID RESPONSE. PATIENT BLOOD GLUCOSE AT BEDSIDE WAS 61. PERIPHERAL EXTREMITIES WERE COLD. PATIENT BREATH WERE SOMEWHAT LABORED AND AROUND 14. PUPILS WERE REACTIVE. BP WAS 98/76, THEN 80/60. WHEN TEAM ARRIVED D50 WAS GIVEN ORDERED BY DR. LOZANO, ALSO HE ORDERED NARCAN WHICH BROUGHT PATIENT BACK TO BASELINE. BLOOD GLUCOSE WENT TO 273. PATIENT URINE OUTPUT FOR MORNING WAS 50 IN VASQUEZ WHICH I DID NOT DC DR. LOZANO ORDERED TO KEEP IN. GAVE ALBUMIN AND NS ORDERRED. APPROX 2 HOURS LATER WE MOVED PATIENT TO BED. AT THIS TIME i OBSERVED THE PATIENT STARTING TO BE A BIT PALE AGAIN AND FELT HER EXTREMITIES WERE COLD. SHE WAS DEFACATING ON FLOOR WE TRANSFERRED HER TO BED. PHONED DR. LOZANO, DR. CELESTE OBSERVED PATIENT AND DECIDED IT WOULD BE BEST TO TRANSFER TO ICU.
--- NOTE | 2020-01-13 17:49 | NUR ---
DR CROWELL AND DR LOZANO AWARE OF PT'S SBP 60'S.
[2020-01-13 18:14] LABS: BASO % 0.1 % (0.0-1.0); HEMATOCRIT 28.4 % (37.0-47.0); LYMPH # 1.9 10*3/uL (1.3-4.4); LYMPH % 10.3 % (27.0-41.0); MEAN CELL VOLUME 73.8 fl (81.0-99.0); MEAN CORPUSCULAR HGB 21.8 pg (27.0-31.0); MEAN CORPUSCULAR HGB CONC 29.6 g/dl (33.0-37.0); MEAN PLATELET VOLUME 8.7 fl (9.6-12.3); MONO # 0.9 10*3/uL (0.1-1.0); MONO % 4.7 % (3.0-9.0); NEUT # 15.6 10*3/uL (2.3-7.9); NEUT % 84.1 % (47.0-73.0); PLATELET COUNT AUTOMATED 187 10*3/uL (130-400); RED BLOOD COUNT 3.85 10*6/uL (4.10-5.10); RED CELL DISTRI WIDTH 22.4 % (0-14.5); WHITE BLOOD COUNT 18.5 10*3/uL (4.8-10.8)
--- NOTE | 2020-01-13 18:33 | NUR ---
DR CROWELL NOTIFIED OF PT'S LACTIC ACID LEVEL OF 7.0
[2020-01-13 18:40] LABS: ALBUMIN 1.8 gm/dl (3.1-4.5); CREATININE 1.8 mg/dL (0.55-1.02); POTASSIUM 4.3 mmol/L (3.5-5.1); TOTAL PROTEIN 4.3 gm/dL (6.4-8.2)
[2020-01-13 18:44] LABS: TROPONIN I 0.073 ng/ml (<0.045)
--- NOTE | 2020-01-13 18:52 | NUR ---
DR LOZANO MADE AWARE OF TROPONIN LEVEL OF 0.073
--- NOTE | 2020-01-13 20:09 | NUR ---
1930 RESTING IN BED WITH HOB ELEVATED. SIDE RAILS UP X'S 2. CALL LIGHT IN REACH. NO C/O'S VOICED AT PRESENT. PT IS DROWSY, BUT ALERT. PULSE OX 88% ON RA. PLACED ON NC AT 2L. PULSE OX INCREASED TO 96%. RIJ MLC INTACT. COLOR PALE. IV FLUIDS INFUSING AT 150CC/HR. BP LOW AT 79 SYSTOLIC. LOVEPHED GTT INCREASED TO 8 MICS. BP IMPROVED AFTER THIS. ABD DRSG D/I. NO PERISTALSIS NOTED. VASQUEZ PATENT AND DRAINING SCANT URINE. SEE INTERVENTION SCREEN FOR ALL VITAL SIGNS. GENERALIZED EDEMA CONT. WILL CONT TO MONITOR.
--- NOTE | 2020-01-13 21:47 | NUR ---
2104 1ST UNIT OF PRBC'S STARTED PER POLICY. SEE INTERVENTIONS FOR ALL APPROPRIATE VS ETC. 2144 CONT TO TOLERATE TRANSFUSION. MOIST COUGH NOTED. IINCENTIVE SPIROMETER AT BEDSIDE.
--- NOTE | 2020-01-13 22:08 | NUR ---
REFUSED BATH AT PRESENT. WILL REASSESS.
--- NOTE | 2020-01-13 23:45 | NUR ---
IV TYLENOL GIVEN FOR C/O'S POST -OP ABD PAIN.WILL MONITOR.
--- NOTE | 2020-01-13 23:59 | NUR ---
2350 PRBC'S DONE. TOLERATED WELL. REPOSITIONED. VERY RELUCTANT TO MOVE. ENCOURAGED TO COUGH AND DEEP BREATHE. SUCTIONED WITH ROSI FOR WHITE SPUTUM.
[2020-01-14] VITALS (29 sets, daily range): BP systolic 30–198; BP diastolic 0–117
--- NOTE | 2020-01-14 00:45 | NUR ---
0045 EARLIER TYLENOL EFFECITVE.
[2020-01-14 01:07] LABS: HEMATOCRIT 39.4 % (37.0-47.0)
--- NOTE | 2020-01-14 01:08 | NUR ---
HAVING DIFFICULTY OBTAINING BP ON MULTIPLE LIMBS DUE TO PT ANASARCA, EVEN MANUALLY.
--- NOTE | 2020-01-14 01:20 | NUR ---
TITRATING LEVOPHED DOWN FOR IMPROVING BP. SEE INTERVENTION SCREEN.
--- NOTE | 2020-01-14 01:32 | NUR ---
CONT TO TITRATE LEVOPHED DOWN.
--- NOTE | 2020-01-14 01:42 | NUR ---
DR. FOX NOTIFIED OF PT RECENT H AND H AND ALSO UPDATED ON PT CONDITION.
--- NOTE | 2020-01-14 02:10 | NUR ---
RSTING IN BED ON LEFT SIDE. HOB ELEVATED. EYES CLOSED. APPEARS TO BE SLEEPING.
--- NOTE | 2020-01-14 03:25 | NUR ---
0230 APPEARS TO BE SLEEPING.
--- NOTE | 2020-01-14 03:28 | NUR ---
0240 PT ASKED IF SHE IS OK, STATES "I'M OK". 0245 HR DROPPING 0249 HR CONT TO DROP. PT IS UNRESPONSIVE. AGONAL RESPIRATIONS NOTED. REBECCA VELASCO CALLED. CPR STARTED. SEE CODE BLUE RECORD FOR ALL PERTINENT MEDS AND INTERVENTIONS. [address] ADAMS CALLED PER SERGEI MEYER, PLUMBING HARDWARE ASSEMBLER, RN AND NOTIFIED OF PT CONDITION. 0325 HERE TO SEE PT 0300 STAT CXR BEING DONE POST INTUBATION.LEVOPHED GTT CONT.
--- NOTE | 2020-01-14 03:50 | NUR ---
HR ELEVATED IN THE 160-180'S. LEVOPHED GTT DC'ED. SWITCHED TO MAYTE IV DIG GIVEN PER ORDER.
--- NOTE | 2020-01-14 03:51 | NUR ---
DTR HERE ALSO. PT CONDITION DISCUSSED WITH AND DTR. PT HR REMAINS IN THE 160'S. PULSE OX 89% ON 100% FIO2 VIA VENT.
--- NOTE | 2020-01-14 03:58 | NUR ---
FAMILY HERE. GATHERING BELONGINGS DUE TO PT IMPENDING TRANSFER. WILL SEND HOME WITH FAMILY. DR. FOX CALLING [facility] TO ARRANGE TRANSFER.
--- NOTE | 2020-01-14 04:49 | NUR ---
AG WILL NOT TAKE PT. DR. FOX TALKING WITH FAMILY. CONT TO TITRATE MAYTE UP FOR CONT HYPOTENSION
[2020-01-14 05:22] LABS: ALBUMIN 1.1 gm/dl (3.1-4.5); CREATININE 2.09 mg/dL (0.55-1.02); TOTAL PROTEIN 3.1 gm/dL (6.4-8.2)
[2020-01-14 05:26] LABS: POTASSIUM 5.6 mmol/L (3.5-5.1)
--- NOTE | 2020-01-14 05:42 | NUR ---
RESP THERAPY UNABLE TO GET ABG'S DUE TO PT EXTREME EDEMA. USED DOPPLER. THIS RN ASLO TRIED AND UNABLE.
--- NOTE | 2020-01-14 05:51 | NUR ---
PULSE OX IS 89% ON 100% FIO2 VIA VENT. CONT TO TITRATE MAYTE UP FOR HYPOTENSION. MAYTE IS AT 160MICS NOW. FAMILY REMAINS AT BEDSIDE.
--- NOTE | 2020-01-14 06:16 | NUR ---
PULSE OX IS BETWEEN 92-97% NOW. CONT TO TITRATE MAYTE UP FOR LOW BP. WRIST RESTRAINTS INTACT BILATERALLY. CIRCULATION ADEQUATE. VASQUEZ PATENT - ONLY 25CC OUT. COLOR REMAINS PALE. ABD DRSG D/I. ABD DISTENDED WITH NO PERISTALSIS NOTED. HANDS VERY COOL TO TOUCH. BOTH ARMS REMAIN EDEMATOUS. R ARM ECCHYMOTIC WITH DRSG INTACT X'S 3. R ARM SEEPING. SCD'S OFF AT PRESENT DUE TO EDEMA. IV FLUIDS CONT. RIJ MLC INTACT. PT REMAINS UNRESPONSIVE TO VERBAL OR PAINFUL STIMULI. CONDITION SERIOUS.
[2020-01-14 06:30] LABS: HEMATOCRIT 36.6 % (37.0-47.0); MEAN CORPUSCULAR HGB 23.8 pg (27.0-31.0); MEAN PLATELET VOLUME 8.8 fl (9.6-12.3); NUCLEATED RED BLOOD CELL 0.1 10*3/uL (0.0-0.0); NUCLEATED RED BLOOD CELL 0.3 % (0.0-0.0); PLATELET COUNT AUTOMATED 185 10*3/uL (130-400); RED BLOOD COUNT 4.45 10*6/uL (4.10-5.10); RED CELL DISTRI WIDTH 22.2 % (0-14.5); WHITE BLOOD COUNT 16.6 10*3/uL (4.8-10.8)
[2020-01-14 06:34] LABS: MEAN CELL VOLUME 82.2 fl (81.0-99.0)
--- NOTE | 2020-01-14 06:40 | NUR ---
DR. JARVIS NOTIFIED OF CONSULT. NO NEW ORDERS RECEIVED.
[2020-01-14 07:12] LABS: ACANTHOCYTES MODERATE; PLATELET SUFFICIENCY NORMAL (NORMAL); SCHISTOCYTES FEW; SPHEROCYTES FEW; TOTAL CELLS COUNTED 100 #CELLS
[2020-01-14 07:23] LABS: ABG BASE EXCESS -23.4 mmol/L (-2.0-2.0)
[2020-01-14 07:24] LABS: ARTERIAL BLOOD GAS PH 6.984 (7.35-7.45)
--- NOTE | 2020-01-14 10:35 | NUR ---
0715 Hypotensive w/ MAP 40"s. Unresponsive ww/o corneal reflex or gag reflex. No response to painful stimuli. Oral mucosa dry , ETT secure. Agonal respirations noted, MLC to RIJ dressing secure. Seeping serous fluid noted from bilateral upper extremities. Dressings to RA saturated and changed, Ecchymosis to RAPHAEL remains, Left arm coved w/ pad to absorb seepage. Abdomen soft w/ intact dressing , Incontinent of loose brown stool. Lilliam care given on turing expectorated moderate amt green bile. BLE edema present 2-3 +. extremities are cold and cyanotic. 0800 Dr. Can was called and order to add levophed was recieved. Also NaHCO3 was given. 0830 Levophed up at maximim dosage w/o improvement of BP. Seizure activity ans well as dolls eyes noted at this time. I spoke w/ pt. family as to events of last evening and progonsis 0900 Dr. Fitzgerald in , full evaulation and then he spoke w/ family as to events and plan of care. Dr. Carrera was called and updated on ABG result and decline in pt. condition. Orders were recieved. 1000 Dr. Steele here and spoke at length w/ family as to POC and prognosis , All family members in to see pt. Code status updated to CC. at familys request pt. is to remain on current pressors for 24 hours.
--- NOTE | 2020-01-14 12:08 | NUR ---
Unable to obtain BP . Dr. Carrera called in Update was given and orders were recieved.
--- NOTE | 2020-01-14 12:55 | NUR ---
Dr. Carrera in to daryljung.
--- NOTE | 2020-01-14 14:13 | NUR ---
Dr. Carrera and Dr. Steele in discussed plan of care. pt. to remain on current pressers .
--- NOTE | 2020-01-14 14:36 | NUR ---
Remains unresponsive , Unable to obtain BP. Carotid pulse palpable. No longer assisting vent. Max dosage on pressors achieved w/o positive effect. No urine output.
--- NOTE | 2020-01-14 15:52 | NUR ---
oRAL CARE GIVEN, rEMAINS UNRESPONSIVE W/O CORNEAL REFLEX. Extremities are cyanotic. and BUE are seeping serous fluid. 1 measurable BP obtained since 0830. Remains hypotensive in spite of maxed out pressors. Family called in and update was given.
--- NOTE | 2020-01-14 18:48 | NUR ---
0600 Rhythm change , to wide complex bradycardia. Family was called in. 1814 Family arrived and update was given. 1833 Asystole w/o spontaneous respirations , no palpible pulse . [facility] was notified and pt. was ruled out for all donation. Dr. Benedict was notified of pt. , plant supervisor was also notified of pt. . Dr. Carrera and Lia were also notified of pt. .
--- NOTE | 2020-01-14 19:35 | NUR ---
BODY SENT TO [facility] PER REQUEST OF [facility]. DIRECTOR OF REGULATORY AFFAIRS AWARE.
--- NOTE | 2020-01-15 07:45 | NUR ---
OCCUPATIONAL THERAPY CO-SIGN I approve of the Occupational Therapy notes written above. SANDHYA URBAN, OTR/L
== END 2020-01-14 19:52 | disposition expired | DRG 329 ==
LOC: ED 19:19 → 4E 01-06 01:53 → EDHOLD 01-06 01:53 → 4E 01-06 01:53 → ICCU 01-10 17:00 → 5E 01-12 21:59 → ICCU 01-13 17:02
PROVIDERS: Family Medicine; Hospitalist; Internal Medicine; Internal Medicine Critical Care Medicine; Nurse Practitioner Family; Student in an Organized Health Care Education/Training Program; Surgery; ADMIT Emergency Medicine; ATTEND Emergency Medicine
PROC: 0DBN8ZZ Excision of Sigmoid Colon, Via Natural or Artificial Opening Endoscopic (ICD-10-PCS; principal; 2020-01-08)
PROC: 0DBL8ZZ Excision of Transverse Colon, Via Natural or Artificial Opening Endoscopic (ICD-10-PCS; principal; 2020-01-08)
PROC: 0DBK8ZZ Excision of Ascending Colon, Via Natural or Artificial Opening Endoscopic (ICD-10-PCS; principal; 2020-01-08)
PROC: 0DBE8ZX Excision of Large Intestine, Via Natural or Artificial Opening Endoscopic, Diagnostic (ICD-10-PCS; principal; 2020-01-08)
PROC: 0DTF0ZZ Resection of Right Large Intestine, Open Approach (ICD-10-PCS; 2020-01-10)
PROC: 30233N1 Transfusion of Nonautologous Red Blood Cells into Peripheral Vein, Percutaneous Approach (ICD-10-PCS; 2020-01-13)
PROC: 0BH17EZ Insertion of Endotracheal Airway into Trachea, Via Natural or Artificial Opening (ICD-10-PCS; 2020-01-14)
PROC: 5A1935Z Respiratory Ventilation, Less than 24 Consecutive Hours (ICD-10-PCS; 2020-01-14)
DX: K52.9 Noninfective gastroenteritis and colitis, unspecified (principal); E43 Unspecified severe protein-calorie malnutrition; K72.00 Acute and subacute hepatic failure without coma; N17.0 Acute kidney failure with tubular necrosis; J96.01 Acute respiratory failure with hypoxia; E87.1 Hypo-osmolality and hyponatremia; E87.2 Acidosis; K63.89 Other specified diseases of intestine; K63.5 Polyp of colon; K59.00 Constipation, unspecified; D50.9 Iron deficiency anemia, unspecified; E87.6 Hypokalemia; E53.8 Deficiency of other specified B group vitamins; K21.9 Gastro-esophageal reflux disease without esophagitis; I48.0 Paroxysmal atrial fibrillation; M10.9 Gout, unspecified; D72.829 Elevated white blood cell count, unspecified; Z66 Do not resuscitate; Z51.5 Encounter for palliative care; E55.9 Vitamin D deficiency, unspecified; E66.3 Overweight; I46.9 Cardiac arrest, cause unspecified; Z20.828 Contact with and (suspected) exposure to other viral communicable diseases; Z90.49 Acquired absence of other specified parts of digestive tract; Z85.41 Personal history of malignant neoplasm of cervix uteri; Z86.73 Personal history of transient ischemic attack (TIA), and cerebral infarction without residual deficits; Z68.27 Body mass index [BMI] 27.0-27.9, adult; Z79.899 Other long term (current) drug therapy